=== PATIENT | male | born 1950 | race Caucasian/White ===

== ENCOUNTER 2018-12-24 06:14 | Inpatient (IN) | payer OTHER, SELFPAY ==
[2018-12-06 08:40] VITALS: BMI 23.6
[2018-12-24] VITALS (15 sets, daily range): BP systolic 102–134; BP diastolic 54–78; PULSE 51–74; RESP 13–23; TEMP 36.2–36.8; O2SAT 95–99; BMI 22.7
[2018-12-24] MEDS: ACETAMINOPHEN 325 MG TABLET 975 MG PO ×3 (07:12→21:26)
[2018-12-24] MEDS: CELECOXIB 200 MG CAPSULE PO (07:12)
[2018-12-24] MEDS: PREGABALIN 75 MG CAPSULE PO (07:13)
[2018-12-24] MEDS: LACTATED RINGERS 1,000 ML 42 ML IV (07:30)
[2018-12-24] MEDS: MIDAZOLAM 2 MG/2 ML VIAL IV (07:36)
[2018-12-24] MEDS: CEFAZOLIN 2 GM/100 ML FROZ.PIGGY IV (07:50)
--- NOTE | 2018-12-24 07:50 | SUR.PREOP ---
Block start time [0736] . Monitoring initiated and maintained throughout procedure. Oxygen and medications given per anesthesiologist instructions. Patient remained stable throughout procedure, no adverse reactions noted. Block end time [0746]. pt talking to RN and friend at bedside during procedure. pt taken directly into the OR after completion of block.
--- NOTE | 2018-12-24 07:57 | PM.PREOP ---
Pre-operative Note Interval Note History & Physical reviewed/Exam performed by Physician: Yes Changes to H&P: No
--- NOTE | 2018-12-24 08:25 | SUR.OPER ---
Beach chair with Marek/Ly shoulder positioner. Lower body on padded OR bed. Head in foam padded head cradle, secured with straps. Non-operative arm secured <90 degrees abduction. Pillow under knees. Safety belt at thigh. Cloth tape over blanket over lower legs.
[2018-12-24] MEDS: BUPIVACAINE 0.5% W/ EPI (PF) VIAL 30 ML INJ (08:31)
[2018-12-24] MEDS: TRANEXAMIC ACID 1,000 MG VIAL 1000 MG INJ ×2 (08:32→09:29)
--- NOTE | 2018-12-24 09:48 | DI.RAD.S_ITS ---
PROCEDURE: XR SHOULDER RT 1V INDICATIONS: Post op reverse total shoulder TECHNIQUE: 2 views of the shoulder were acquired. COMPARISON: None. FINDINGS: Bones: Patient is status post reverse right shoulder arthroplasty. Shoulder alignment is anatomic. No fractures or dislocations. No suspicious bony lesions. Visualized ribs appear intact. Soft tissues: No suspicious soft tissue calcifications. Post surgical changes are noted in right shoulder soft tissue. Surgical drain is also seen in right shoulder. IMPRESSION: Post surgical changes from reverse right total shoulder arthroplasty. Anatomic shoulder alignment. Dictated by: Marquis Fowler M.D. on 12/24/2018 at 10:19 Approved by: Marquis Fowler M.D. on 12/24/2018 at 10:20
--- NOTE | 2018-12-24 09:49 | PM.OP.1 ---
Operative Date/Time/Diagnoses Date of procedure: 12/24/18 Time of procedure: 09:51 Pre-op diagnosis: Right shoulder massive rotator cuff tear with early rotator cuff arthropathy Post-op diagnosis: same Procedure & Clinicians Procedure: Right reverse total shoulder replacement Same procedure as scheduled: Yes Indications: The patient is had chronic right shoulder pain unresponsive to nonoperative therapies. Radiographic studies have revealed changes consistent with a massive rotator cuff tear and arthritis. They have elected to proceed with reverse total shoulder replacement after discussion of the risks benefits and alternatives. Risks discussed included but were not limited to: Failure to improve, instability, infection, nerve damage, deep venous thrombosis, pulmonary embolism, stroke, coma, myocardial infarction and . Surgeon: Anthony Rangel Civil Engineering Design Draftsperson: Anders Jackson Click Yes if Unassisted: No Anesthesia Type: General, Peripheral nerve block and Local Operative Notes Findings: Massive rotator cuff tear of the supraspinatus and infraspinatus as well as the upper portion of the subscapularis. There were minor degenerative changes consistent with early rotator cuff arthropathy. Closure Type: primary Specimen(s): none sent Prosthetic devices, grafts, tissues, transplants, or devices: Prosthetics used in this procedure were manufactured by the [employer] and included in RSP reverse total shoulder with a size 14 mono block stem, a -4 36 mm glenoid head with retaining screw a 36 mm +4 humeral socket insert, a standard 30 mm screw length glenoid base plate and 4 locking screws measuring 34, 22, 14 and 14 mm in length. Applied: drain(s) Estimated Blood Loss (mL): 150 Blood products transfused: none Procedure in detail: The patient was seen in the preoperative area where they identified the right shoulder as the operative site and this was marked with my initials. He received preoperative antibiotics and underwent the induction of an interscalene block. They were taken to the operating room and placed on the operating room table in a supine position with the underwent the induction of a general anesthetic. There were then repositioned in the ?beach chair? position using a dedicated positioner. All pressure points were well padded. The knees were slightly bent to prevent tension on the sciatic nerves. The right arm was prepared from the fingertips to the base of the neck with ChloraPrep in the usual fashion and draped through sterile drapes. An approximately 15 cm incision was created starting at the clavicle just above the coracoid and going to the deltoid insertion. The deltopectoral interval was used to access the shoulder taking the vein to the medial side. The vein was protected throughout the case. The upper 1 cm of the pectoralis major was released. The biceps groove was identified and used as a guide to releasing the remaining subscapularis. The biceps itself had ruptured. The subscapularis was tagged for later repair. The shoulder was dislocated and a proximal humeral osteotomy performed using an extramedullary guide. A proximal humeral protector was then placed. Retractors were placed access the glenoid. A 360 degree release was performed of the remaining subscapularis with care being taken to protect the axillary nerve. The soft tissues were removed circumferentially around the glenoid. The guide was used to drill the guide hole in the center of the inferior glenoid. The tap was placed and used as a guide for the reamer. The tap was then removed and the glenoid base plate inserted. The peripheral locking screws were then placed through the appropriate guide. A trial glenoid head was applied. We then turned our attention to the humerus. The proximal humeral protector was removed. Cylindrical reamers were used to size the canal. Broaching was then performed beginning with a small broach and working up until a line to line fit with the reamer was obtained. The guide for the proximal metaphyseal reamer was then applied and the metaphysis was reamed appropriately. The trial metaphyseal portion of the body was then applied to the broach. Trial reductions were performed and the size of the glenoid head and the cup were optimized. Stability was checked in maximal internal and external rotation and range of motion was checked to allow access to the top of the head, internal rotation to in excess of 50? in the ?scarecrow position? and the ability to reach the groin. The appropriate final prosthetic components were then opened. The glenoid head was impacted into position and checked for rotational and axial stability before placing the set screw. Drill holes for repair of the subscapularis were performed and sutures placed. The humeral prosthetic was then impacted into position. The humeral cup was placed. The joint was relocated and irrigated. The subscapularis was repaired to the previously placed sutures. A deep drain was placed. The deltopectoral interval was reapproximated with 0 Vicryl. Subcutaneous layer was closed with interrupted 3-0 Vicryl and skin with a running 3 0 V lock suture. Subcutaneous tissues were then infiltrated with 0.5% Marcaine for postoperative pain control. An Aquacel Ag dressing was applied and the patient's arm was placed in a sling. The patient was then transferred to the recovery room in good condition having tolerated the procedure well. Complications: none Condition: stable Disposition: PACU Plan for aftercare: The patient will be maintained in the sling for 6 weeks. They will be allowed to come out to do pendulum exercises and for hygiene. They will keep the dressing in place until follow-up in 2 weeks. They will be maintained in the hospital overnight for observation and likely discharge tomorrow.
--- NOTE | 2018-12-24 10:10 | SUR.PHASEI ---
Report called to BINDU Mayer.
--- NOTE | 2018-12-24 10:27 | SUR.PHASEI ---
Pt transferred to the floor with his belongings bag. Report to BINDU Mayer. VS stable. IV Saline locked. Drsg cdi. Small amt of sanguinous fluid to HV, drain to compression suction. 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 Sling in place.
[2018-12-24] MEDS: LACTATED RINGERS 1,000 ML 125 ML IV ×2 (10:30→18:46)
--- NOTE | 2018-12-24 12:51 | PT.IIE ---
Current Diagnoses Other specific arthropathies, not elsewhere classified, right shoulder (12/24/18) Surgery Performed Operation Date: 12/24/18 07:45 Actual Procedures p Total Shoulder Arthroplasty - Reverse(Right) - Anthony Rangel MD Surgical History (Last Updated 12/06/18 @ 10:50 by Malathi Joe, BINDU) Hx of heart artery stent (Acute 11/10/00) Hx of hernia repair (Acute 02/26/03) S/P lumbar fusion (Acute ~2004) Medical History (Last Updated 12/06/18 @ 09:16 by Malathi Joe RN) Arthritis (Acute) Former smoker (Acute) HLD (hyperlipidemia) (Acute) Osteoarthritis (Acute) Physical Therapy Inpatient Evaluation/Re-Eval M1 PT/OT-IP Prior Functional Status Start: 12/24/18 12:32 Freq: NEEDED Status: Active Protocol: Document 12/24/18 12:05 (Rec: 12/24/18 12:51 [id number]) Medical Review Prior Functional Status Medical History Reviewed Yes Diet/Fluid Consistency Regular Communication No deficits noted. Able to make needs known. Mobility and Gait Pt was very independent for all mobility without using AD. 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 Pt also drives. Activities of Daily Living and IADL's Pt is independent with all ADLs and IADLs Social History Household Members none Living Arrangements Apartment/Condo Number of Floors (Floors) One Floor Number of Stairs To Enter/Railing? 1 threshold to enter Home Environment Standard Height Toilet Tub/Shower Employment Status Retired Additional Social History Comment Pt lives alone in [place] . He's originally from [place] and doesnt have family and many friends here. His friend's present during eval. Pt will stay with her and her Oren for a night after d/c. And they will be available to assist if needed. M2 PT-IP Current Condition Start: 12/24/18 12:32 Freq: NEEDED Status: Active Protocol: Document 12/24/18 12:05 (Rec: 12/24/18 12:51 [email or web address]) Physical Therapy Current Condition Current Condition Evaluation Date 12/24/18 Treatment Diagnosis R TSA, impaired shoulder mobility and strength for functional activities Onset Date 12/24/18 Precautions Shoulder Precautions Sling PROM Internal Rotation to Body No External Rotation No Abduction Forward Flexion to 90 degrees Pendulums Brace sling for 6 weeks Weight Bearing Status Weight Bearing Status Non-Weight Bearing M3 PT-IP Subjective Start: 12/24/18 12:32 Freq: NEEDED Status: Active Protocol: Document 12/24/18 12:05 (Rec: 12/24/18 12:51 [email or web address]) Subjective Physical Therapy Visit Type Type Initial Evaluation Visit Start Time 12:05 Visit Stop Time 12:30 Total Visit Minutes 25 Notes Pt's friend at bedside upon assessment. Pt requested to go bathroom. Number of ENVIRONMENTAL GEOLOGIST Visits 0 Physical Therapy Visit Comments Patient Comments I want to get up and go to bathroom. Patient Goals To return home Therapy Pain Assessment Pain Present Pain Present Denied Pain M4 PT-IP Mobility and Gait Start: 12/24/18 12:32 Freq: NEEDED Status: Active Protocol: Document 12/24/18 12:05 (Rec: 12/24/18 12:51 [email or web address]) PT-Bed Mobility Assessment Supine to Sit Supine to Sit Standby Assistance Sit to Supine Sit to Supine Standby Assistance Scooting Scooting to Edge of Bed Standby Assistance PT-Transfer Assessment Sit to and From Stand Sit to and from Stand Standby Assistance Equipment Transfer Assistive Device Gait Belt Orthotic/Prosthetic Devices or Brace: Yes Transfers Transfer Destination Bed Chair Toilet Transfer Technique Stand Step Pivot Transfer Ability Level of Assist Standby Assistance Comments Mobility Comments Pt was able to perform supine to long sit and pivot to L EOB with SBA. Pt stumble slightly for the 1st sit to stand but he did not need AD/ assistance . Pt went to bathroom and held on to IV pole with LUE and SBA. He was also able to bend over to clean hands and wash his face unsupported. Gait Assessment Gait Gait Assistance Required: Independent Distance (Feet) 40 Able to Maintain Weight Bearing Status Yes During Gait Assistive Devices Assistive Device Gait Belt Orthotic/Prosthetic Devices or Brace: Yes Gait Deviations General Gait Pattern Within Normal Limits Factors Limiting Gait Function Factors Limiting Gait Function Limited Range of Motion Pain Comments Gait Comments Pt got OOB and amb to bathroom with SBA. He was able to navigate with his IV pole around the room as well. Pt is steady on his feet and no signs of LOB PT-Balance Assessment Sitting Balance and Reactions Static Sitting Balance Ability Normal Dynamic Sitting Balance Ability Normal Standing Balance and Reactions Static Standing Balance Ability Normal Dynamic Standing Balance Ability Normal M5 PT-IP Objective Assessments Start: 12/24/18 12:32 Freq: NEEDED Status: Active Protocol: Document 12/24/18 12:05 (Rec: 12/24/18 12:51 [email or web address]) Orientation Orientation/Cognition Level of Alertness Alert Orientation Name Age Birthday Month Date Year Day of Week Place Situation Language Function Ability No Deficits Noted Safety Awareness Understands Safety Issues Memory Description No Deficits Noted Gross Range of Motion Upper Extremity ROM Assessment Right Impaired Lower Extremity ROM Assessment Within Functional Limits Strength Upper Extremity Strength Assessment Right Impaired Lower Extremity Strength Assessment Within Functional Limits Coordination Assessment Gross Coordination Gross Coordination WNL Sensation Assessment Sensation Gross Sensation Right UE Impaired Light Touch Impaired Proprioception (Position) Impaired Sensation Description Paresthesia Numbness Comments Sensation Comments due to post op anesthesia effect Muscle Tone Muscle Tone WNL No Comments Muscle Tone Comments flaccid due to post op anesthesia effect and NWB/AROM protocol M6 PT-IP Treatment Start: 12/24/18 12:32 Freq: NEEDED Status: Active Protocol: Document 12/24/18 12:05 (Rec: 12/24/18 12:51 [email or web address]) Physical Therapy Treatment Education Education Provided Precautions Weight Bearing Status Post-Op Packet Safety Other Treatments Other Treatment Performed pt education on katie and doff/ adjustment of R arm sling pendulum ex M7 PT-IP Assessment and Plan Start: 12/24/18 12:32 Freq: NEEDED Status: Active Protocol: Document 12/24/18 12:05 (Rec: 12/24/18 12:51 [email or web address]) PT Summary Assessment and Plan Potential Rehabilitation Potential Excellent Status of Condition at Evaluation Stable Summary Impairments Pain ROM Strength Assessment Summary Pt is low complexity with SBA for overall mobility. Pt is right hand dominant and post op R TSA. Education on arm sling fitting/ how to katie and doff + pendulum ex are given today with his friend's presence. Pt does show slightly impulsive for mobility and required cues to slow him down for functional mobility. But he does appear very safe and high functional level due to his active lifestyle. Pt will cont need skilled therapy for pt's education and safety training prior to d/c. He is expected to be d/c home once he is medically stable Goals Bed Mobility Goal Independent Transfer Goal Independent Gait Goal Independent Gait Distance 300 Other Goals negotiate 1 step without railing independently Days to Meet Goals 3 Frequency of Treatment Frequency Of Treatment Twice a Day Treatment Plan Physical Therapy Treatment Plan Bed Mobility Training Transfer Training Gait Training Therapeutic Exercise Balance Retraining Post Op Education Discharge Planning Hot or Cold Pack Other Recommendations and Next Treatment bed mob, transfer and gait Focus training as keon without AD review protocol, armsling education and pendulum ex Recommendations To Nursing Amount of Assist Needed Standby Assistance Discharge Recommendations PT Discharge Recommendations Home
--- NOTE | 2018-12-24 14:19 | CM.DPNOTE ---
DCP/Assessment: Reviewed chart. Patient is a 68yr old male admitted today for elective right TSA performed by Dr. Rangel. PCP listed is Dr. Canseco. Primary payor is 1)[employer]age. Reviewed chart. Attempted to meet with patient this AM to introduce role and discuss d/c planning. At time of visit patient off floor for surgery. Second, attempt made to see patient today and he was asleep. Spoke with RN/Leyla and she reports that patient ambulating in hallway earlier. Patient in good spirits and as of right now there are no anticipated d/c planning needs. P: CM team to follow closely. Anticipate home when stable. JEAN Olson Discharge Planning/Care Management CM Discharge Assessment Start: 12/24/18 14:17 Freq: Status: Active Protocol: Document 12/24/18 14:17 KJS (Rec: 12/24/18 14:19 KJS [id number]) Discharge Planning Assessment Assigned Roll Tube Setter JEAN Olson Contact Information Destiny Lott (friend) Advance Directives? Yes History Provided By Patient Medical Record Prior Living Arrangements Apartment/Condo Household Members none Type of transporation used prior to Drives own vehicle admit Independent with ADL's Yes Is patient alert and oriented? Yes Caregiver for Another No Barriers to Discharge No Discharge Plan Home Transportation Arrangement Family to provide transport. Referrals Initiated None needed Whiteboard Updated in Patient Room with No name and ext. # of Roll Tube Setter Review Status In Process Next Review Type Continued Stay Review Pre-Anesthesia Assessment Start: 12/06/18 08:40 Freq: Status: Active Protocol: Document 12/06/18 08:40 CAB (Rec: 12/06/18 10:52 CAB [id number]) Pre-Anesthesia Assessment Patient Also Known As (AKA) Elian Patient Information Reviewed Via Phone Assessment Assessment Completed With Patient Diagnostic Results EKG Urinalysis Other Comment A1c Outside lab/ECG scanned to record Primary Care Provider Salomon Culp Medical Clearance Received Yes Seen Specialist in Last 12 Months Yes Specialist Seen Orthopedist Comment PCP clearance 11/07/18 scanned to record Primary Language Japanese Farm Instructor Required No Height 175.26 cm Weight 72.575 kg Body Mass Index (BMI) 23.6 Hearing Ability Normal Visual Assist Glasses Dentition Type Teeth, Natural Present Dental Implants Other Aids No Hx Anesthesia Reactions No Hx Family Anesthesia Reaction No Hx Malignant Hyperthermia No Hx Blood Transfusions No Anesthesia Review Requested No Stock Room Manager No alcohol intake current alcohol intake frequency a few times a week Alcohol Intake Frequency Other: Socially Smoking Status Former smoker how long ago did patient quit smoking Quit age 45-50 Substance Use Type does not use Pain Present Pain Reported Musculoskeletal Symptoms Joint Pain Limited Range of Motion History of Falling (Recent or History of No ) Patient is completely paralyzed or No completely immobile Mental Status Oriented to own ability Comment Very active, goes to the gym every day Is patient on oxygen? No Does patient have SALAS/SOB No Hx Sleep Apnea No Currently Taking a Beta [place] No Can You Climb a Flight of Stairs Without Yes SOB Hx Chest Pain No Hx SOB No Hx Syncope or Dizziness No Anti-Coagulant Therapy No Has a Piece Dyer No Cardiac Testing No Hx Pacemaker/ICD No Pacemaker Rep Required? No Cardiac Clearance Received Not Applicable Diet Type At Home Regular dysphagia No Bladder Pattern Nocturia Urinary Catheter Present No Hx Urinary Self Catheterization No Diabetes No HgbA1C 6.1 Date 11/12/18 Hx Drug Resistant Organism No Presence of External or Internal Medical Yes: Cardiac stent x 1 Devices Have you traveled outside the [facility] in the last 30 days? Marital Status Lives With none Prior Living Arrangements Apartment/Condo Support System Friend(s) Does the Patient Have Assistance After Yes Surgery Patient Discharge Plan Description Other Comment Will discharge to friend's home for assistance after surgery Feels Safe in Current Environment Yes Been Physically Hurt or Threatened By a No Person in Current Environment Do you have thoughts of harming yourself None or others? Are you currently considering suicide? No Do you have a plan to hurt yourself or No Plan others? Do You Have Any Spiritual Beliefs That No May Affect Your HC Choices? Do You Have Any Cultural Practices That No May Affect Your HC Choices? Spiritual Referral None Comment Amish Who Can We Speak to About Patient's Care Family, friends Identifying Code for Release of Patient Declines to issue Information Health Care Proxy/Next of Kin Oren Espino (friends) Health Care Proxy Phone Number Oren: [phone] Srinivas: Emergency Contact Name Oren Espino (friends) Emergency Contact Phone Number Oren: [phone] Srinivas: Power of Underwriting Technician Yes Power of Underwriting Technician Name Oren or Srinivas (friends) Power of Underwriting Technician Phone Number Oren: [phone] Srinivas: PAC Instructions Durable medical equipment Medications to take/avoid Nasal antibiotic No ETOH/petroleum product on skin DOS NPO Post-op transportation Pre-surgical wash Sturdy shoes/comfortable clothes Do not bring valuables and remove jewelry
--- NOTE | 2018-12-24 15:38 | PC.NURSE ---
Admit from PACU Sling to R shoulder, hemovac compressed and draining. Nerve block effective. NO pain no nausea. Using call light, up ambulating in halls.
--- NOTE | 2018-12-24 17:13 | PC.NURSE ---
Pt sitting up in bed asking to take a walk. Ambulated throughout floor SBA with IV pole. Sling to right arm in place, reports right hand feels tight', heavy, radial pulse normal, CMS +, unable to abduct elbow, denies pain. 97%RA, LS clear, denies SOB. BT+ denies nausea. Using I.S. to 2500. Up to chair for dinner. SCD's removed for activity, using call light appropriately.
[2018-12-24] MEDS: ASPIRIN EC 81 MG TABLET PO (21:25)
[2018-12-25] MEDS: OXYCODONE IR 5 MG TABLET PO (00:47)
[2018-12-25] MEDS: IBUPROFEN 200 MG TABLET PO (02:12)
[2018-12-25] MEDS: OXYCODONE IR 10 MG TABLET PO ×3 (03:57→11:51)
[2018-12-25 04:14] VITALS: BP 128/76; PULSE 77; RESP 18; TEMP 36.5; O2SAT 95
[2018-12-25] MEDS: SODIUM CHLORIDE 0.9% FLUSH 10 ML IV (05:29)
[2018-12-25 05:38] LABS: Hematocrit 33.1 % (41-53)
--- NOTE | 2018-12-25 07:25 | PM.DS.1 ---
History of Present Illness Date Patient Seen: 12/25/18 Time Patient Seen: 07:26 Chief complaint: 11693 RIGHT REVERSE TOTAL SHOULDER ARTHROPLASTY Narrative: The history and physical is contained in the chart in a previously completed note. Please refer to that note for this information. Discharge Providers Date of admission: 12/24/18 06:14 Discharge Date: 12/25/18 Primary care physician: Salomon Culp MD Consults: 12/24/18 10:28 Consult to Discharge Planning Routine Comment: Consult to Physical Therapy Evaluate & Treat Comment: Pendulum exercises only. Physician Instructions: Evaluate and Treat Discharge provider: Anthony Rangel MD Summary Discharge Diagnosis: 1. Right shoulder massive rotator cuff tear with early rotator cuff arthropathy 2. Post hemorrhagic anemia Hospital Course: The patient was admitted to the hospital and taken directly to the operating room on December 24, 2018. He underwent a right reverse total shoulder replacement with no complications. He was stable postoperatively and at the time of this dictation it appears that he will be stable for discharge home today. Status at Discharge Cognitive/behavioral status at discharge: oriented Functional status at discharge: independent ambulation Overall status at discharge: patient is progressing back to baseline Time Spent with Patient Less than 30 minutes Exam Vital Signs (past 8 hours): - 12/24/18 23:55 12/25/18 04:14 Temperature 97.8 F 97.7 F Pulse Rate 65 77 Respiratory Rate 16 18 Blood Pressure 123/70 128/76 Pulse Oximetry 95 95 Oxygen Delivery Method Room Air Oxygen Flow Rate 0 Narrative Exam Narrative: Right shoulder wound is dressed with no drainage on the bandage. Light touch is intact in the radial, ulnar, median, musculocutaneous and axillary nerve distributions. He can extend his thumb, abduct his thumb, abduct his fingers and fires his biceps and deltoid. Objective Labs Result Diagrams: 12/25/18 05:04 Labs: Laboratory Results - last 24 hr 12/25/18 05:04 Hgb 11.0 L Hct 33.1 L Discharge Plan Discharge Plan Patient Disposition: Home Discharge Med Rec/Prescriptions Prescriptions: New aspirin 81 mg Tablet,Delayed Release (Dr/Ec) 81 mg PO BID 42 Days Qty: 84 RF: 0 oxycodone 5 mg Tablet 5 mg PO Q3HR PRN (Reason: Pain, Moderate (4-6)) Qty: 40 RF: 0 Continued atorvastatin 40 mg Tablet 40 mg PO DAILY RF: 0 ibuprofen 200 mg Capsule 200 mg PO BID PRN (Reason: pain) RF: 0 acetaminophen 500 mg Tablet 1 - 3 tab PO DAILY PRN (Reason: pain) RF: 0 Multi-Day with Iron 18-400 mg-mcg Tablet 1 tab PO DAILY RF: 0 omega 7-nsu-coj-fish oil [Fish Oil] 1,000 mg (120 mg-180 mg) Capsule 1 cap PO DAILY RF: 0 Discontinued aspirin 81 mg Tablet,Delayed Release (Dr/Ec) 81 mg PO DAILY RF: 0 Follow up/Referrals: Anthony Rangel MD [Physician] - 2 Weeks Salomon Culp MD [Primary Care Provider] - Provider Discharge Instructions Diet: Diet as Tolerated and Regular Activity: Keep your right arm in the sling. You may take the sling off for showering and to do pendulum exercises. You may use your right hand in front of your body with the elbow at your side. Do not lift more than 1-2 lb with the right hand. Cold/Heat Therapy: Apply ice to the right shoulder for 15 minutes every hour as needed for pain. Skin/Wound/Dressing Care Report to your healthcare provider any signs of infection, such as:: chills, fever, night sweats, increased pain, unusual drainage and unusual redness Dressing: Leave the dressing intact until your postoperative appointment. You may shower with the dressing in place. If the central strip of the dressing gets saturated with either water or blood please call the office to have it changed. Visit Report/Discharge Packet Instructions: DI for Shoulder Replacement Stand Alone Forms: Surgery Discharge Discharge Data Primary Care Provider: Salomon Culp Attending Provider: Anthony Rangel Admit Date/Time: 12/24/18 06:14
[2018-12-25 08:00] VITALS: BP 114/73; PULSE 64; RESP 16; TEMP 36.8; O2SAT 99
--- NOTE | 2018-12-25 09:50 | OT.IP.EVAL ---
Current Diagnoses Other specific arthropathies, not elsewhere classified, right shoulder (12/24/18) Surgery Performed Operation Date: 12/24/18 07:45 Actual Procedures p Total Shoulder Arthroplasty - Reverse(Right) - Anthony Rangel MD Past Medical History (Last Updated 12/06/18 @ 09:16 by Malathi Joe, RN) Arthritis (Acute) Former smoker (Acute) HLD (hyperlipidemia) (Acute) Osteoarthritis (Acute) Surgical History (Last Updated 12/06/18 @ 10:50 by Malathi Joe RN) Hx of heart artery stent (Acute 11/10/00) Hx of hernia repair (Acute 02/26/03) S/P lumbar fusion (Acute ~2004) Occupational Therapy Inpatient Evaluation/Re-Eval M1 PT/OT-IP Prior Functional Status Start: 12/25/18 16:03 Freq: NEEDED Status: Active Protocol: Document 12/25/18 09:50 PJM (Rec: 12/25/18 16:17 PJM [email or web address]) Medical Review Prior Functional Status Medical History Reviewed Yes Diet/Fluid Consistency Regular Communication WNL Mobility and Gait Pt was independent with all mobility without AD. 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 Activities of Daily Living and IADL's Pt is independent with all ADLs, IADLs, drives. Social History Household Members none Living Arrangements Apartment/Condo Number of Floors (Floors) One Floor Number of Stairs To Enter/Railing? none Home Environment Standard Height Toilet Tub/Shower Employment Status Retired Additional Social History Comment pt has no DME at home M2 OT-IP Current Condition Start: 12/25/18 16:03 Freq: Status: Active Protocol: Document 12/25/18 09:50 PJM (Rec: 12/25/18 16:17 PJM [email or web address]) Occupational Therapy Current Condition Current Condition Evaluation Date 12/25/18 Treatment Diagnosis decreased self care, s/p R reverse TSA Diagnosis Onset Date 12/24/18 Post Operative Precautions Shoulder Precautions Sling PROM Internal Rotation to Body No External Rotation No Abduction Forward Flexion to 90 degrees Pendulums Weight Bearing Status Weight Bearing Status Non-Weight Bearing Allowed Weight Bearing Amount (enter % RUE or #) (%) M3 OT- IP Subjective and Pain Start: 12/25/18 16:03 Freq: Status: Active Protocol: Document 12/25/18 09:50 PJM (Rec: 12/25/18 16:17 PJ [email or web address]) OT- Subjective Occupational Therapy Visit Type Type Initial Evaluation Visit Start Time 08:41 Visit Stop Time 09:50 Total Visit Minutes 69 Occupational Therapy Visit Comments Patient Comments I live by myself so I need to know how to do everything one handed. Patient/Caregiver Goals to be able to work out in the gym and take trip to [place] in April. OT Pain Assessment Pain When Pain Assessed After Treatment Pain Present Pain Present Pain Reported Location Right Shoulder Intensity 2 Description Aching Acute Pain Behaviors Facial Grimacing Management Techniques Distraction Timing of Activity with Medications M4 OT- IP ADL's Start: 12/25/18 16:03 Freq: Status: Active Protocol: Document 12/25/18 09:50 PJM (Rec: 12/25/18 16:17 PJ [email or web address]) OT [id number] General Evaluation Self-Feeding Ability Independent OT ADL-Grooming General Evaluation Grooming Ability Standby Assistance Comments OT Grooming Comments after education re: using R hand as assist within sling OT ADL-Oral Care Comments Oral Care Comments after education re: using R hand as assist within sling OT ADL-Dressing General Eval Upper Body Dressing Ability Standby Assistance Lower Body Dressing Ability Independent Comments OT Dressing Comments after education and practice re: R shoulder precautions and unilateral techniques/ sequence; provided education re: donning and doffing sling x3 at pt request; also provided written instructions re: steps for donning and doffing sling at pt request OT ADL-Toileting General Evaluation Toileting Ability Independent OT ADL-Bathing Bathing Type Bathing Type Shower General Evaluation Bathing Ability Independent Devices Bathing Equipment Hand Held Shower Sprayer Comments OT Bathing Comments Pt stood to shower independently after education re: precautions and unilateral techniques. M5 OT- IP IADL's Start: 12/25/18 16:03 Freq: Status: Active Protocol: Document 12/25/18 09:50 PJM (Rec: 12/25/18 16:17 PJ [email or web address]) OT-Instrumental Activities of Daily Living Deficits IADL Deficits Identified Deficits Home Safety Awareness Awareness of Need for Assistance at Home Good Awareness Ability to Problem Solve Emergency Able to Problem Solve Situations Medication Management Medication Management No Deficits Identified Money Management Money Management No Deficits Identified Meal Preparation Meal Preparation Comments provided education re: unilateral techniques Executive Relations Specialist Executive Relations Specialist Comments provided education re: unilateral techniques Driving Driving Caregiver Provides Assist Driving Comments friend, Oren, to assist until pt able M6 OT- IP Functional Cognition Start: 12/25/18 16:03 Freq: Status: Active Protocol: Document 12/25/18 09:50 PJM (Rec: 12/25/18 16:17 PJM [email or web address]) Cognitive Factors Limiting Selfcare Function Cognitive Ability Level of Alertness Alert Patient Orientation Name Age Birthday Month Date Year Day of Week Place Situation Attention Span Ability Capable of Focused Attention Capable of Sustained Attention Ability to Follow Commands Able to Follow Multi-Step Commands Memory Description No Deficits Noted Safety Awareness No Deficits Noted Problem Solving Ability No deficits Noted Executive Function Ability No Deficits Noted Cognitive Comments Cognitive Assessment Comments Pt mildly impulsive, but verbalizes and demonstrates understanding of RUE precautions and all education. OT- Vision and Hearing OT- Hearing Assessment OT- Hearing Assessment WFL OT- Vision Assessment Visual Acuity WFL Glasses All The Time M7 OT- IP Mobility and Balance Start: 12/25/18 16:03 Freq: Status: Active Protocol: Document 12/25/18 09:50 PJM (Rec: 12/25/18 16:17 PJM [email or web address]) OT- Bed Mobility Assessment Rolling Type of Rolling Roll to Left Level of Assistance Independent Supine to Sit Supine to Sit Assist Independent Sit to Supine Sit to Supine Assist Independent Scooting Scooting to Edge of Bed Independent OT-Transfer Assessment Sit to and From Stand Sit to and from Stand Independent Transfers Transfer Ability Independent Technique Transfer Destination Bed Chair Shower Stall Toilet Transfer Technique Stand Step Pivot Devices Transfer Assistive Devices None Comments Mobility Comments no device needed OT- Gait Assessment Gait Gait Assistance Required: Independent Distance (Feet) 40 Comments Gait Ability Comments Pt up ad ethel in room without a device. No LOB noted. OT- Balance Assessment Sitting Balance and Reactions Static Sitting Balance Ability Good Dynamic Sitting Balance Ability Good Standing Balance and Reactions Static Standing Balance Ability Good Dynamic Standing Balance Ability Good M8 OT- IP Objective Assessments Start: 12/25/18 16:03 Freq: Status: Active Protocol: Document 12/25/18 09:50 PJM (Rec: 12/25/18 16:17 PJM [email or web address]) OT Gross Range of Motion Upper Extremity Range of Motion Assessment Right Impaired ROM Impairments R shoulder NT; distal AROM WFL in RUE when sling off. Provided education re: RUE pendulums and AROM ex for elbow, forearm, wrist and fingers. LUE WNL throughout. OT Strength Upper Extremity Strength Assessment Right Impaired Hand Tire Mechanic Strength Hand Dominance Right Comments Strength Comments R shldr NT, distal strength at least 3/5. LUE WNL. OT- Coordination Assessment Comments Coordination Comments RUE impaired by sling use, but hand function WNL within sling. LUE WNL. OT-Muscle Tone Assessment Muscle Tone WNL Yes OT Sensation Assessment Comments Summary Comments BUE WNL Edema Edema Present Edema Comments min edema noted in R hand; pt educated re: fist pumping to decreased edema M9 OT- IP Assessment and Plan Start: 12/25/18 16:03 Freq: Status: Active Protocol: Document 12/25/18 09:50 PJM (Rec: 12/25/18 16:17 PJM [email or web address]) OT Summary Assessment and Plan Potential Rehabilitation Potential Excellent Analytic Complexity at Evaluation Low Summary Progress Towards Goals Safe For Discharge Assessment Summary Low complexity OT assessment and all education completed today re: RUE reverse TSA precautions, sling donning/ doffing, adapted techniques for all self care and IADLS, RUE pendulums and RUE distal AROM exercises. Pt lives alone and able to verbalize and demonstrate understanding of all precautions/education. Pt plans to d/c today. He will spend first night with friends , then they can assist PRN with IADLS, transport, shopping. No further OT services needed. Frequency of Treatment Frequency Of Treatment Discharge Discharge Recommendations OT Discharge Recommendations Home with Assistance Home Equipment Needs none
--- NOTE | 2018-12-25 09:50 | PT.IPTN ---
Current Diagnoses Other specific arthropathies, not elsewhere classified, right shoulder (12/24/18) Surgery Performed Operation Date: 12/24/18 07:45 Actual Procedures p Total Shoulder Arthroplasty - Reverse(Right) - Anthony Rangel MD Physical Therapy Treatment Note M2 PT-IP Current Condition Start: 12/24/18 12:32 Freq: NEEDED Status: Active Protocol: Document 12/24/18 12:05 HH (Rec: 12/24/18 12:51 [email or web address]) Physical Therapy Current Condition Current Condition Evaluation Date 12/24/18 Treatment Diagnosis R TSA, impaired shoulder mobility and strength for functional activities Onset Date 12/24/18 Precautions Shoulder Precautions Sling PROM Internal Rotation to Body No External Rotation No Abduction Forward Flexion to 90 degrees Pendulums Brace sling for 6 weeks Weight Bearing Status Weight Bearing Status Non-Weight Bearing M3 PT-IP Subjective Start: 12/24/18 12:32 Freq: NEEDED Status: Active Protocol: Document 12/25/18 10:20 AB (Rec: 12/25/18 10:25 AB [email or web address]) Subjective Physical Therapy Visit Type Type Treatment Note Visit Start Time 09:50 Visit Stop Time 10:00 Total Visit Minutes 10 Number of ASSISTANT VICE PRESIDENT Visits 0 Physical Therapy Visit Comments Patient Comments pt agreeable to do PT Therapy Pain Assessment Pain When Pain Assessed At Rest Pain Present Pain Present Pain Reported Location Right Shoulder Intensity 4 Scale Used Numeric (1 - 10) Pain Management Techniques Timing of Activity with Medications M4 PT-IP Mobility and Gait Start: 12/24/18 12:32 Freq: NEEDED Status: Active Protocol: Document 12/25/18 10:20 AB (Rec: 12/25/18 10:25 AB [email or web address]) PT-Bed Mobility Assessment Supine to Sit Supine to Sit Independent Sit to Supine Sit to Supine Independent PT-Transfer Assessment Sit to and From Stand Sit to and from Stand Standby Assistance Gait Assessment Gait Gait Assistance Required: Standby Assistance Distance (Feet) 300 Able to Maintain Weight Bearing Status Yes During Gait Assistive Devices Assistive Device None Gait Belt Factors Limiting Gait Function Factors Limiting Gait Function Decreased Strength Limited Range of Motion Pain Stair Climbing Assessment Evaluation Level of Assist On Stairs Standby Assistance Devices Stair Climbing Assistive Devices None Left Railing Technique/Endurance Stair Climbing Direction Ascend and Descend Stair Climbing Technique Step Over Step Number of Steps Climbed 3 Query Text: Stair Climbing Set # Repetitions (reps) 1 Comments Stair Climbing Comments pt completed up/down platform step SBA; completed up/down 3 steps without using rails ascending SBA but used L rail descending SBA M5 PT-IP Objective Assessments Start: 12/24/18 12:32 Freq: NEEDED Status: Active Protocol: Document 12/24/18 12:05 (Rec: 12/24/18 12:51 [email or web address] Orientation Orientation/Cognition Level of Alertness Alert Orientation Name Age Birthday Month Date Year Day of Week Place Situation Language Function Ability No Deficits Noted Safety Awareness Understands Safety Issues Memory Description No Deficits Noted Gross Range of Motion Upper Extremity ROM Assessment Right Impaired Lower Extremity ROM Assessment Within Functional Limits Strength Upper Extremity Strength Assessment Right Impaired Lower Extremity Strength Assessment Within Functional Limits Coordination Assessment Gross Coordination Gross Coordination WNL Sensation Assessment Sensation Gross Sensation Right UE Impaired Light Touch Impaired Proprioception (Position) Impaired Sensation Description Paresthesia Numbness Comments Sensation Comments due to post op anesthesia effect Muscle Tone Muscle Tone WNL No Comments Muscle Tone Comments flaccid due to post op anesthesia effect and NWB/AROM protocol M6 PT-IP Treatment Start: 12/24/18 12:32 Freq: NEEDED Status: Active Protocol: Document 12/25/18 10:20 AB (Rec: 12/25/18 10:25 AB [email or web address]) Physical Therapy Treatment Education Education Provided Precautions Safety M7 PT-IP Assessment and Plan Start: 12/24/18 12:32 Freq: NEEDED Status: Active Protocol: Document 12/25/18 10:20 AB (Rec: 12/25/18 10:25 AB [email or web address]) PT Summary Assessment and Plan Potential Rehabilitation Potential Good Summary Impairments Pain ROM Strength Balance Coordination Sensation Transfers Gait Activity Tolerance Progress Towards Goals Progressing Toward Goals Assessment Summary pt doing well with mobility and plans to go home today. OT adddressed sling management and shoulder precautions with pt. pt has no other concerns and stated that he is ready to go home. Goals Bed Mobility Goal Independent Transfer Goal Independent Gait Goal Independent Gait Distance 300 Other Goals negotiate 1 step without railing independently Days to Meet Goals 3 Frequency of Treatment Frequency Of Treatment Twice a Day Treatment Plan Physical Therapy Treatment Plan Bed Mobility Training Transfer Training Gait Training Therapeutic Exercise Balance Retraining Post Op Education Discharge Planning Hot or Cold Pack Other Recommendations and Next Treatment bed mob, transfer and gait Focus training as keon without AD review protocol, armsling education and pendulum ex Recommendations To Nursing Amount of Assist Needed Standby Assistance Discharge Recommendations PT Discharge Recommendations Home
[2018-12-25] MEDS: ACETAMINOPHEN 325 MG TABLET 975 MG PO (10:46)
[2018-12-25] MEDS: ASPIRIN EC 81 MG TABLET PO (10:47)
[2018-12-25] MEDS: MULTIVIT,CALC,MINS/IRON/FOLIC 1 TABLET 1 TAB PO (10:47)
[2018-12-25] MEDS: POLYETHYLENE GLYCOL 3350 17 GM POWD.PACK PO (10:48)
[2018-12-25 12:00] VITALS: BP 138/77; PULSE 59; RESP 16; TEMP 36.9; O2SAT 100
--- NOTE | 2018-12-25 13:31 | PC.NURSE ---
SHIFT SUMMARY: PATIENT'S HV DC'D INTACT PRIOR TO SHOWER W/ OT THIS AM. IV DC'D INTACT THIS AM. PATIENT TOLERATED BOTH WELL. PAIN WELL CONTROLLED. CLEARED FOR DC HOME BY PT AND OT. SCRIPT TO PATIENT, REVIEWED ALL DC INSTRUCTIONS W/ PATIENT AND HIS FRIEND. LEFT BY WC W/ ALL BELONGINGS IN NO S/SX'S OF DISTRESS.
== END 2018-12-25 13:20 | disposition home or self-care (01) | DRG 483 ==
PROVIDERS: Admitting Provider Orthopaedic Surgery; PCP Family Medicine; Visit Provider Orthopaedic Surgery
PROC: 0RRJ00Z Replacement of Right Shoulder Joint with Reverse Ball and Socket Synthetic Substitute, Open Approach (ICD-10-PCS; CPT 23472; principal; 2018-12-24 07:45)
DX: M75.121 Complete rotator cuff tear or rupture of right shoulder, not specified as traumatic (principal); M12.811 Other specific arthropathies, not elsewhere classified, right shoulder; I25.10 Atherosclerotic heart disease of native coronary artery without angina pectoris; E78.5 Hyperlipidemia, unspecified; S46.211A Strain of muscle, fascia and tendon of other parts of biceps, right arm, initial encounter; W01.0XXD Fall on same level from slipping, tripping and stumbling without subsequent striking against object, subsequent encounter
CPT/HCPCS: 36415; 64450; 73020; 85014; 85018; 97116; 97161; 97165; 97535; C1776; J0690; J1100; J2250; J2405; J2704; J3010